=== PATIENT | female | born 1985 | race Caucasian/White ===

== ENCOUNTER 2017-02-24 10:14 | Inpatient (IN) ==
[2017-02-24] MEDS ORDERED: NOZIN NASAL SWAB NAS ONE ×2 (10:19)
[2017-02-24] MEDS ORDERED: FAMOTIDINE PB 20 MG/50 ML BAG IV ONE (10:19)
[2017-02-24] MEDS ORDERED: CITRIC ACID/SODIUM CITRATE 30ml PO ONE (10:19)
[2017-02-24] MEDS ORDERED: CEFAZOLIN PREMIX (MC ONLY) 2 GM/50 ML BAG IV ONE (10:19)
--- OUTSIDE RECORDS SUMMARY | 2017-02-24 10:20 | External Medical Summary | Continuity of Care Document ---
:1985 Author Organization [facility] [employer] [facility] Address [address] [place], [place] [id number] Phone Care Team Providers Name Role Phone Prachi Renee MD Unavailable Unavailable Allergies, Adverse Reactions, Alerts Substance Reaction Severity Status TRIAMCINOLONE ACETONIDE spread rash Unknown Active Medications Medication Instructions Dosage Effective Dates Status Comments (start - stop) ORAL - Active TABLET clobetasol 0.05 % apply by topical Not Available - Active topical cream route 2 times every day a thin layer to the affected area(s) as needed Claritin Liqui-Gel as needed - Active 10 mg capsule Problems Condition Effective Dates (start - stop) Clinical Status Encounter for suprvsn of normal - , second trimester 23 weeks gestation of - Oth related conditions, - second trimester Matern care for oth or susp poor fetl - gr, 2nd tri, unsp 18 weeks gestation of - Previous Low Transverse - Matern care for oth or susp poor fetl - grth, 2nd tri, unsp 19 weeks gestation of - Previous Low Transverse - Encntr screen for infections w sexl - mode of transmiss Encounter for screening for oth - infec/parastc diseases Encounter for suprvsn of normal - , first trimester Encounter for screening of - mother 10 weeks gestation of - Previous Low Transverse - Encounter for suprvsn of normal - , second trimester 19 weeks gestation of - Previous Low Transverse - Encounter for suprvsn of normal - , second trimester 14 weeks gestation of - Procedures Procedure Date OB Visit No Charge Results Test Name Date and Time Measure Units Reference Range Abnormal Flag Comments Unknown Advance Directives Directive Yes / No Effective Date File Name Unknown Encounters Encounter Practice Location Reason(s) Diagnoses Date Provider Care Team Description For Visit Members [facility] Encounter for Oct- Morales Referring In Womens suprvsn of normal 9-201 Charlene. Provider: Jasmeet MEDELLIN, , second 7 700 Prachi [address] [id number] weeks Medical [facility] 1522, gestation of [facility], [facility] , [address] [place], [address], , [facility] [place], , [place], tel: [phone] , [place]. tel: tel: [phone] [facility] Previous Low Aug-2 Morales Referring In Womens Transverse 4-201 Charlene. Provider: Jasmeet MEDELLIN C-SectionEncounte 7 700 Prachi PO Box r for suprvsn of [facility] 1522, normal , [facility], second , [place] [address], [id number] weeks 120, [address], , gestation of [facility] [place], , [place], tel: [phone] , [place]. tel: tel: [phone] [facility] Previous Low Aug-2 Morales Referring In Womens Ultrasound Transverse 4-201 Charlene. Provider: Jasmeet MEDELLIN C-SectionMatern 7 700 Prachi PO Box care for oth or Medical [facility] 1522, susp poor fetl [facility], [facility], 2nd tri, , [place] [address], unsp19 weeks 120, [address], [id number], gestation of [facility] [place], , [place], tel: [phone]. , [place]. tel: tel: [phone] [facility] Oth Aug-1 Morales Referring In Womens related 4-201 Charlene. Provider: Jasmeet MEDELLIN, conditions, 7 700 Prachi PO Box second Medical [facility], trimesterMatern [facility], care for oth or Sreedhar [address], susp poor fetl 120, [address], [id number], grth, 2nd tri, Tanvir Ag unsp18 weeks [place], , [place], tel: gestation of [phone] . , [place]. tel: tel: [phone] [facility] Previous Low Frederick-1 Morales Referring In Womens Transverse 7-201 Charlene. Provider: Jasmeet MEDELLIN, C-SectionEncounte 7 700 Prachi PO Box r for suprvsn of [facility] 1522, normal , [facility], [facility] Sreedhar [address], [id number] weeks 120, [address], , [facility] [place], , [place], tel: [phone]. , [place]. tel: tel: [phone] [facility] Previous Low Scotty-2 Morales Referring In Womens Transverse 0-201 Charlene. Provider: Jasmeet MEDELLIN, C-SectionEncntr 7 700 Prachi PO Box screen for [facility], infections w sexl [facility], mode of Sreedhar [address], transmissEncounte 120, [address], , r for screening Ag [facility] for oth [place], , [place], tel: infec/parastc [phone] . [facility] , [place]. tel: for suprvsn of tel: [phone] normal , [phone] first trimesterEncounte r for screening of [id number] weeks gestation of Associates [facility] Cortez0 Richard In Womens 8-201 Skye. [facility], 7 700 [facility] 1522, [address] [place], [facility] [place], 120, [id number], [facility], tel:[phone] , . tel: [phone] [facility] Fajardo-0 Richard In W[facility]ens 7-201 [facility], 7 700 PO [facility] 1522, [address] [place], [facility] [place], 120, [id number], [facility], tel:[phone] , [place]. tel: [phone] Family History Family Member Diagnosis Age At Onset No family history of Lung Disease No family history of Thyroid Disorder No family history of Epilepsy No family history of Breast Cancer No family history of Venous Thrombosis No family history of Hypertension No family history of Osteoporosis No family history of Ovarian Cancer No family history of Cardiovascular Disease No family history of Colon Cancer No family history of Pulmonary Embolism No family history of Stroke No family history of Kidney Disease No family history of Diabetes Immunizations Vaccine Date Status Comments Unknown Payers Payer name Insurance type Covered green party ID Authorization(s) [facility] [place] BL [id number] Social History Type Description Quantity Date Captured Alcohol Use Details No Caffeine Use Details Unknown Tobacco Use Status Unknown Smoking Status Never smoker Vital Signs Date / Height Weight BMI Pulse Blood Temperature Respiratory Body Head BMI Time: Rate Pressure Rate Surface Circumference percentile Area 174.60 40.5 115/73 -2017 lbs 8 mm[Hg] 8:42 kg/m AM eter (2) 39.6 -2017 5 8:33 kg/m AM eter (2) Chief Complaint And Reason For Visit Unknown Chief Complaint And Reason For Visit Reason For Referral Reason For Referral Unknown Plan Of Care Date Type Action Status Appointment Geovany Mack BOOKED Future Order: Radiology Order Complete OB Ultrasound > 14 Ordered Weeks ([id number]) Date Type Problem Goal Intervention Status Start Date Unknown. History Of Present Illness Encounter Date Complaint History Of Present Illness This patient has no known history of present illness Functional Status Encounter Date Functional Assessment Cognitive Assessment Unknown Medications Administered Medication Instructions Dosage Effective Dates (start - stop) Status Comments Drug Treatment Unknown Instructions Date Instruction Additional Information HIV and other routine tests risk factors identified by history anticipated course of care nutrition and weight gain counseling, special diet toxoplasmosis precautions (cats / raw meat) sexual activity exercise indications for ultrasound influenza vaccine environmental / work hazards travel use of any medications (including supplements, vitamins, herbs, OTC drugs) domestic violence seat belt use childbirth classes / hospital facilities hospital registration genetic testing new ob handbook Zika virus assessment & precautions
--- OUTSIDE RECORDS SUMMARY | 2017-02-24 10:21 | External Medical Summary | Continuity of Care Document ---
:1985 Author Organization [facility] [employer] [facility] Address [address] [place], [place] [address] Phone Care Team Providers Name Role Phone [...] Effective Dates (start - stop) Clinical Status Previous Low Transverse - Encounter for suprvsn of normal - , second trimester 27 weeks gestation of - Oth related conditions, - second trimester Matern care for oth or susp poor fetl - gr, 2nd tri, unsp 18 weeks gestation of - Previous Low Transverse - Matern care for oth or susp poor fetl - gr, 2nd tri, unsp 19 weeks gestation of [...] second trimester 14 weeks gestation of - Encounter for suprvsn of normal - , second trimester 23 weeks gestation of - Procedures Procedure Date Immuniz admnin, 1 vac, sngl/combo 19 Yrs + Flu Vaccine - Quadrivalent OB Visit No Charge Hemoglobin count, colorimetric Hematocrit blood count Glucose test Venpnctr fngr/heel/ear stick routne Results Test Name Date and Time Measure Units Reference Range Abnormal Flag Comments Panel Description: Glucose [Mass/volume] in Serum or Plasma --1 hour post 50 g glucose PO GLUCOSE, 114 mg/dL <140 N Test performed at [facility] 09:39:00 DIAGNOSTICS [id number] (50G)-[address] [place] [address]Lwmqwbne: NATHANIEL NICHOLS DO,MPH Panel Description: HEMOGLOBIN + HEMATOCRIT HEMOGLOBIN 09:39:00 11.8 g/dL 11.7-15.5 N HEMATOCRIT 09:39:00 33.8 % 35.0-45.0 L REPORT COMMENT:FASTING :NOTest performed at [facility] [id number] [place] [address]Ejmvrzwl: NATHANIEL NICHOLS DO,MPH Advance Directives Directive Yes / No Effective Date File Name Unknown Encounters Encounter Practice Location Reason(s) Diagnoses Date Provider Care Team Description For Visit Members Leslie Ag Previous Low Morales Referring In Womens Transverse 7-201 Charlene. Provider: Health PA, C-SectionEncounte 7 700 Prachi PO Box r for suprvsn of Medical [facility] 1522, normal , [place] [address], [place] [address] [place], [id number] weeks 120, [address], [id number], gestation of Tan[place], , [place], tel: [phone]. , [place]. tel: tel: [phone] [facility] Encounter for Sep-1 Morales Referring In Womens suprvsn of normal 9-201 Charlene. Provider: Jasmeet MEDELLIN, , second 7 700 Prachi PO Box [id number] weeks Medical [facility] 1522, gestation of [facility], Dr [address] [place], [address], [address], [id number], Michael Agr[place], , [place], tel: [phone]. , [place]. tel: tel: [phone] [facility] Previous Low Aug-2 Morales Referring In Womens Transverse 4-201 Charlene. Provider: Jasmeet MEDELLIN, C-SectionEncounte 7 700 Prachi PO Box r for suprvsn of Medical [facility] 1522, normal , [facility], second Dr [address] [address] [place], [id number] weeks 120, [address], , [facility] of [facility] [place], , [place], tel: [phone]. , [place]. tel: tel: [phone] [facility] Previous Low Aug-2 Morales Referring In Womens Ultrasound Transverse 4-201 Charlene. Provider: Jasmeet MEDELLIN, C-SectionMatern 7 700 [address]achi PO Box care for oth or Medical [facility] 1522, susp poor fetl [facility], [facility], 2nd tri, Dr [address] [place], unsp19 weeks 120, [address], [id number], gestation of Tanvir Ag [place], , [place], tel: [phone]. , [place]. tel: tel: [phone] [facility] Oth Aug-1 Morales Referring In Womens related 4-201 Charlene. Provider: Jasmeet MEDELLIN, conditions, 7 700 Prachi PO Box second Medical [facility] 1522, trimesterMatern [facility], care for oth or [place] [address] [place], susp poor fetl 120, [address], [id number], grth, 2nd tri, [facility] unsp18 weeks [place], , [place], tel: gestation of [phone]. , [place]. tel: tel: [phone] [facility] Previous Low Frederick-1 Morales Referring In Womens Transverse 7-201 Charlene. Provider: Jasmeet MEDELLIN, C-SectionEncounte 7 700 Prachi PO Box r for suprvsn of Medical [facility] 1522, normal , [facility], [facility] Sreedhar [address], weeks 120, [address], , gestation of [facility] [place], , [place], tel: [phone]. , [place]. tel: tel: [phone] [facility] Previous Low Scotty-2 Morales Referring In Womens Transverse 0-201 Charlene. Provider: Jasmeet MEDELLIN, C-SectionEncntr 7 700 Prachi PO Box screen for Medical [facility] 1522, infections w sexl [facility], mode of Sreedhar [address], transmissEncounte 120, [address], , r for screening [facility] for oth [place], , [place], tel: infec/parastc [phone]. [facility] , [place]. tel: for suprvsn of tel: [phone] normal , [phone] first trimesterEncounte r for screening of weeks gestation of [facility] Scotty-0 Ramos In Womens 8-201 Skye. Jasmeet MEDELLIN, 7 700 PO Box Medical 1522, [facility], [place], Sreedhar [address], 120, [id number], [place], [place], tel: [phone] , [place]. tel: [phone] Leslie Ag Ramos In Womens 7-201 [facility], 7 700 [facility] 1522, [place] [address] Anna, [facility], 120, [id number], [place], [place], [phone] , . tel: [phone] Family History Family Member Diagnosis Age At [...] of Diabetes Immunizations Vaccine Date Status Comments Influenza, injectable, completed Source: New Immunization Record quadrivalent, preservative free, 3 yrs or older Payers Payer name Insurance type Covered constitution party ID Authorization(s) [facility] [id number] [facility] [id number] Social History Type Description Quantity Date Captured Alcohol Use Details No Caffeine Use Details Unknown Tobacco Use Status Unknown Smoking Status Never smoker Vital Signs Date / Height Weight BMI Pulse Blood Temperature Respiratory Body Head BMI Time: Rate Pressure Rate Surface Circumference percentile Area 180.50 41.9 110/68 -2017 lbs 5 mm[Hg] 8:52 kg/m AM eter (2) Chief Complaint And Reason For Visit Unknown Chief Complaint And Reason For Visit Reason For Referral Reason For Referral Unknown Plan Of Care Date Type Action Status Appointment Geovany Mack BOOKED Appointment Geovany Mack [facility] [place] Future Order: Radiology Order Complete OB Ultrasound > 14 Ordered Weeks ([id number]) Date Type Problem Goal Intervention Status Start Date Unknown. History Of Present Illness Encounter Date Complaint History Of Present Illness This patient has no known history of present illness Functional Status Encounter Date Functional Assessment Cognitive Assessment Unknown Medications Administered Medication Instructions Dosage Effective Dates (start - stop) Status Comments Drug Treatment Unknown Instructions Date Instruction Additional Information gestational glucose lab screening HIV and other routine tests risk factors [...]
--- OUTSIDE RECORDS SUMMARY | 2017-02-24 10:21 | External Medical Summary | Continuity of Care Document ---
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 36 weeks gestation of - Previous Low Transverse - 32 weeks gestation of - Previous Low Transverse - Encounter for suprvsn of normal - , second trimester 14 weeks gestation of - Encounter for suprvsn of normal - , second trimester 23 weeks gestation of - Encounter for suprvsn of normal - , third trimester 30 weeks gestation of - Procedures Procedure Date OB Visit No Charge Results Test Name Date and Time Measure Units Reference Range Abnormal Flag Comments Unknown Advance Directives Directive Yes / No Effective Date File Name Unknown Encounters Encounter Practice Location Reason(s) Diagnoses Date Provider Care Team Description For Visit Members Leslie Ag Previous Low Morales Referring In Womens Transverse 9-201 Charlene. Provider: Jasmeet MEDELLIN C-SectionStreptoc 7 700 Prachi PO Box occus B carrier [address], complicating [place] [address] [place], [id number] weeks 120, [address] , , gestation of Ag [facility] [place], , [place], tel: [phone] , [place]. tel: tel: [phone] Leslie Ag Previous Low Morales Referring In Womens Transverse 5-201 Charlene. Provider: Jasmeet MEDELLIN [id number] weeks 7 700 Prachi PO Box gestation of [facility] 1522, [facility], [place] [address] [place], 120, [address], [id number], [facility], , [place], tel: [phone]. , [place]. tel: tel: [phone] Leslie Ag Previous Low Nov-2 Morales Referring In Womens Transverse 1-201 Charlene. Provider: Jasmeet MEDELLIN, [id number] weeks 7 700 Prachi PO Box gestation of [facility] 1522, Center [facility], [place] [address] [place], 120, [address], [id number], Ancelmo [facility] [place], , [place], tel: [phone]. , [place]. tel: tel: [phone] Leslie Ag Encounter for Nov-0 Morales Referring In Womens suprvsn of normal 7-201 Charlene. Provider: Jasmeet MEDELLIN, , third 7 700 Prachi PO Box [id number] weeks Medical [facility] 1522, gestation of [facility], [place] [address] [place], [address], [address], , [place]mo [place], , [place], tel: [phone] , [place]. tel: tel: [phone] Leslie Ag Previous Low Oct-1 Morales Referring In Womens Transverse 7-201 Charlene. Provider: Jasmeet MEDELLIN, C-SectionEncounte 7 700 [address] PO Box r for suprvsn of [facility] 1522, normal , [facility], second [place] [address] [place], weeks 120, [address], [id number], gestation of Ancelmo [facility] [place], , [place], tel: [phone] , [place]. tel: tel: [phone] Leslie Ag Encounter for Sep-1 Morales Referring In Womens suprvsn of normal 9-201 Charlene. Provider: Jasmeet MEDELLIN, , second 7 700 Prachi PO Box [id number] weeks [facility] 1522, gestation of [facility], [place] [address] [place], 120, [address], , Magy [place], , [place], tel: [phone]. , [place]. tel: tel: [phone] [facility] Previous Low Aug-2 Morales Referring In Womens Transverse 4-201 Charlene. Provider: Jasmeet MEDELLIN, C-SectionEncounte 7 700 Prachi PO Box r for suprvsn of [facility] 1522, normal , [facility], [facility] Dr [address] [address] [place], [id number] weeks 120, [address], [id number], gestation of Tanvir Ag [place], , [place], tel: [phone]. , [place]. tel: tel: [phone] [facility] Previous Low Sep-2 Morales Referring In Womens Ultrasound Transverse 4- Anvik. Provider: Jasmeet MEDELLIN, C-SectionMatern 7 700 Prachi PO Box care for oth or [facility] 1522, susp poor fetl [facility], [facility], 2nd tri, [place] [address] [place], unsp19 weeks 120, [address], , gestation of Magy AgRUST [place], , [place], tel: [phone]. , [place]. tel: tel: [phone] [facility] Oth Aug-1 Morales Referring In Womens related 4-201 Charlene. Provider: Jasmeet MEDELLIN, conditions, 7 700 Prachi PO Box [facility] 1522, trimesterMatern [facility], care for oth or Dr [address] [place], susp poor fetl 120, [address], , grth, 2nd tri, Tanvir Ag unsp18 weeks [place], , [place], tel: gestation of [phone]. , [place]. tel: tel: [phone] [facility] Previous Low Aug- Morales Referring In Womens Transverse 7-201 Charlene. Provider: Jasmeet MEDELLIN, C-SectionEncounte 7 700 [address] PO Box r for suprvsn of Medical [facility] 1522, normal , [facility], [facility] [place] [address] [place], weeks 120, [address], [id number], gestation of Ancelmo [facility] [place], , [place], tel: [phone]. , [place]. tel: tel: [phone] Associates [facility] Previous Low Scotty-2 Morales Referring In Womens Transverse 0-201 Charlene. Provider: Health LACIE, C-SectionEncntr 7 700 Prachi PO Box screen for Medical [facility] 1522, infections w sexl Center [facility]an [place], mode of [place] [address] [place], transmissEncounte 120, [address], , r for screening [facility] for oth [place], , [place], tel: infec/parastc [phone]. [facility] , [place]. tel: for suprvsn of tel: [phone] normal , [phone] first trimesterEncounte r for screening of [id number] weeks gestation of Associates Ancelmo Fajardo-0 Richard In Womens 8-201 Skye. Health LACIE, 7 700 PO Box Medical 1522, [place], [place], 120, [id number], [facility] [place], tel: [phone] , [place]. tel: [phone] Associates [facility] Fajardo-0 Richard In Womens 7-201 Skye. Health [place], 7 700 PO Box Medical 1522, [address], [place], 120, [id number], [facility] [place], tel: [phone] , [place]. tel: [phone] Family History Family Member Diagnosis Age At [...] of Diabetes Immunizations Vaccine Date Status Comments Tdap completed Source: New Immunization Record Influenza, injectable, completed Source: New Immunization Record quadrivalent, preservative free, 3 yrs or older Payers Payer name Insurance type Covered green party ID Authorization(s) [facility] [place] BL [id number] [facility] BL [id number] [facility] [id number] Social History Type Description Quantity Date Captured Alcohol Use Details No Caffeine Use Details Unknown Tobacco Use Status Unknown Smoking Status Never smoker Vital Signs Date / Height Weight BMI Pulse Blood Temperature Respiratory Body Head BMI Time: Rate Pressure Rate Surface Circumference percentile Area 190.00 44.1 lbs 6 mm[Hg] 8:56 kg/m AM eter (2) Chief Complaint And Reason For Visit Unknown Chief Complaint And Reason For Visit Reason For Referral Reason For Referral Unknown Plan Of Care Date Type Action Status Appointment Geovany Mack BOOKED Appointment Geovany Mack BOOKED Appointment Geovany Mack [facility] [place] C/S BOOKED Future Order: Radiology Order Complete OB Ultrasound > 14 Ordered Weeks ([id number]) Date Type Problem Goal Intervention Status Start Date Unknown. History Of Present Illness Encounter Date Complaint History Of Present Illness This patient has no known history of present illness Functional Status Encounter Date Functional Assessment Cognitive Assessment Unknown Medications Administered Medication Instructions Dosage Effective Dates (start - stop) Status Comments Drug Treatment Unknown Instructions Date Instruction Additional Information labor signs gestational glucose lab screening HIV and other [...]
--- OUTSIDE RECORDS SUMMARY | 2017-02-24 10:21 | External Medical Summary | Continuity of Care Document ---
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 Provider: Health PA, C-SectionEncounter 7 700 [address] PO Box for suprvsn of Medical Ullom 1522, normal , [facility], second [id number] , [place] [address] [place], weeks gestation of 120, [address], , [place], [place], , [place], tel: [phone]. , [place]. tel: tel: [phone] [facility] Previous Low Scotty-2 Morales Referring In Womens Transverse 0-201 Charlene. Provider: Health LACIE, C-SectionEncntr 7 [address] PO Box screen for Medical Ullom 1522, infections w sexl [facility], mode of [place] [address] [place], transmissEncounter [address], [address], , for screening for Ancelmo, [place] oth infec/parastc [place], , [place], tel: diseasesEncounter [phone] . for suprvsn of , [place]. tel: normal , tel: [phone] first [phone] trimesterEncounter for screening of weeks gestation of [facility] Fajardo-0 Richard In Womens 8-201 Skye. Health LACIE, 7 700 PO [address] Medical [address], [address] [place], [place], 120, [id number], [place], [place], tel: [phone] , [place]. tel: [phone] [facility] Fajardo-0 Richard In Womens 7-201 Skye. Health LACIE, 7 700 PO [address] Medical [address], [address] [place], [place], 120, [id number], [place], [place], tel: [phone] , [place]. tel: [phone] Family History Family Member Diagnosis Age At [...] Unknown Payers Payer name Insurance type Covered constitution party ID Authorization(s) ELVIS ADRIAN [id number] Social History Type Description Quantity Date Captured Alcohol Use Details No Caffeine Use Details Unknown Tobacco Use Status Unknown Smoking Status Never smoker Vital Signs Date / Height Weight BMI Pulse Blood Temperature Respiratory Body Head BMI Time: Rate Pressure Rate Surface Circumference percentile Area 164.20 38.1 110/62 2017 lbs 6 mm[Hg] 2:46 kg/m PM eter (2) Chief Complaint And Reason For Visit Unknown Chief Complaint And Reason For Visit Reason For Referral Reason For Referral Unknown Plan Of Care Date Type Action Status Appointment Geovany Mack BOOKED Date Type Problem Goal Intervention Status Start [...]
--- OUTSIDE RECORDS SUMMARY | 2017-02-24 10:21 | External Medical Summary | Continuity of Care Document ---
:1985 Author Organization [facility] Allergies Active Description Code Type Severity Reaction Onset Reported/ Identified Relationship Clinical to Patient Status Yes TRIAMCINOLON 2189 1 N/A spread E ACETONIDE rash Medications Medication Packaging Start Date Stop Date Route Dosage Sig Tablet 08/08/2016 08/10/2016 AMOXICILLIN take 1 tablet by ORAL route 3 times every day for 3 days Problems Date Dx Coded Attending Type Code Diagnosis Diagnosed By 10/10/2016 Charlene Morales O34.211 Previous Low Transverse 10/10/2016 Charlene Morales O36.5920 Matern care for oth or susp poor fetl grth, 2nd tri, unsp 10/10/2016 Charlene Morales Z3A.19 19 weeks gestation of 12/03/2016 Charlene Morales O34.211 Previous Low Transverse 12/03/2016 Charlene Morales Z34.82 Encounter for suprvsn of normal , second trimester 12/03/2016 Charlene Morales Z3A.27 27 weeks gestation of Procedures Code Description [place] [address] Ultrasnd exam 10/10/2016 of preg uterus, compl 76927 OB Visit No 12/03/2016 Charge 12710 Immuniz 12/03/2016 admnin, 1 vac, sngl/combo 87476 Flu Vaccine - 12/03/2016 Quadrivalent 93742 Immuniz 12/24/2016 admnin, 1 vac, sngl/combo 19854 TDAP VACCINE 12/24/2016 >7 IM Results There is no data. Encounters ACCT No. Visit Discharge Status Pt. Type Provider Facility Loc./Unit Complaint Date/Time [id number] 02/12/2017 02/12/2017 [facility] Outpatient Morales, 13:15:00 23:59:59 Charlene Woods [id number] 02/04/2017 02/04/2017 [facility] Outpatient Morales, 08:40:00 23:59:59 Charlene Woods [id number] 01/21/2017 01/21/2017 [facility] Outpatient Morales, 08:40:00 23:59:59 Charlene Woods [id number] 01/07/2017 01/07/2017 [facility] Outpatient Morales, 09:20:00 23:59:59 Charlene Woods [id number] 12/24/2016 12/24/2016 [facility] Outpatient Morales, 11:05:00 23:59:59 Charlene Woods [id number] 12/03/2016 12/03/2016 [facility] Outpatient Morales, 08:40:00 23:59:59 Charlene Woods [id number] 11/05/2016 11/05/2016 [facility] Outpatient Morales, 08:40:00 23:59:59 Charlene Woods [id number] 10/10/2016 10/10/2016 [facility] Outpatient Morales, 14:00:00 23:59:59 Charlene Woods [id number] 10/10/2016 10/10/2016 [facility] Outpatient Morales, 13:45:00 23:59:59 Charlene Woods [id number] 09/30/2016 09/30/2016 [facility] Outpatient Morales, 15:30:00 23:59:59 Charlene Woods [id number] 09/02/2016 09/02/2016 [facility] Outpatient Morales, 14:45:00 23:59:59 Charlene Woods [id number] 08/09/2016 08/09/2016 [facility] Outpatient Morales, 15:06:00 23:59:59 Charlene Woods [id number] 08/08/2016 08/08/2016 [facility] Outpatient Morales, 10:50:00 23:59:59 Charlene Woods [id number] 08/06/2016 08/06/2016 [facility] Outpatient Morales, 10:15:00 23:59:59 Charlene Woods [id number] 07/25/2016 07/25/2016 [facility] Outpatient Ramos, 09:55:00 23:59:59 Skye Duran [id number] 07/24/2016 07/24/2016 C[facility] Outpatient Ramos, 09:48:00 23:59:59 Skye Duran [id number] 02/19/2017 Document 13:50:00 Registration
--- OUTSIDE RECORDS SUMMARY | 2017-02-24 10:21 | External Medical Summary | Continuity of Care Document ---
:1985 Author Organization [facility] Address [address] [place], [place] [address] Phone Care Team Providers Name Role Phone [...] stop) Clinical Status Previous Low Transverse - Matern care for oth or susp poor fetl - , 2nd tri, unsp 19 weeks gestation of - Oth related conditions, [...] weeks gestation of - Procedures Procedure Date Ultrasound exam of preg uterus, complete Results Test Name Date and Time Measure Units Reference Range Abnormal Flag Comments Unknown Advance Directives Directive Yes / No Effective Date File Name Unknown Encounters Encounter Practice Location Reason(s) Diagnoses Date Provider Care Team Description For Visit Members [facility] Previous Low Morales Referring In Womens Transverse 4-201 Charlene. Provider: Jasmeet MEDELLIN, C-SectionEncounte 7 [address] PO Box r for suprvsn of [facility] 1522, normal , [facility] Dr [place] [address] [place], [id number] weeks 120, [address], , gestation of [place], , [place], tel: [phone]. , [place]. tel: tel: [phone] [facility] Previous Low Morales Referring In Womens Ultrasound Transverse -201 Charlene. Provider: Jasmeet MEDELLIN, C-SectionMatern 7 [address] PO Box care for oth or [facility] 1522, susp poor fetl [facility], [facility], tri, Dr [place] [address] [place], unsp19 weeks 120, [address], , gestation of [place], , [place], tel: [phone] , [place]. tel: tel: [phone] Associates Ag Oth Sep- Morales Referring In Womens related 4-201 Charlene. Provider: wayne Peralta, 7 [address] PO Box [facility] 1522, trimesterMatern [facility], care for oth or Dr [place] [address] [place], susp poor fetl 120, [address], , gr, tri, [place] unsp18 weeks [place], , [place], tel:[phone] gestation of [phone]. , [place]. tel: tel: [phone] [facility] Previous Low Rfederick-1 Morales Referring In Womens Transverse 7-201 Charlene. Provider: Health LACIE, C-SectionEncounte 7 [address] PO Box r for suprvsn of Medical Ullo 1522, normal , [facility], [facility] , [place] [address] [place], [id number] weeks 120, [address], [id number], [facility] [place], , [place], tel: [phone]. , [place]. tel: tel: [phone] [facility] Previous Low Scotty-2 Morales Referring In Womens Transverse 0-201 Charlene. Provider: Health LACIE, C-SectionEncntr 7 [address] PO Box screen for Medical Ullo 1522, infections w sexl [facility], mode of [place] [address] [place], transmissEncounte 120, [address], , r [facility] [place], , [place], tel: infec/parastc [phone]. [facility] Hospital[facility] , [place]. tel: for suprvsn of tel: [phone] normal , [phone] first trimesterEncounte r for screening of fefeec82 weeks gestation of [facility] Cortez0 Richard In Womens 8-201 Skye. Health LACIE, 7 700 [address] Medical [address], [address] [place], [place], 120, [id number], [place], [place], tel: [phone] , [place]. tel: [phone] [facility] Cortez0 Richard In Womens 7-201 Skye. Health PA, 7 700 PO Box Medical [address], [address] [place], [place], 120, [id number], [place], [place], tel: [phone] , [place]. tel: [phone] Family History Family Member Diagnosis Age At [...] Unknown Payers Payer name Insurance type Covered republican ID Authorization(s) [facility] [id number] Social History Type Description Quantity Date Captured Unknown Vital Signs Date / Height Weight BMI Pulse Blood Temperature Respiratory Body Head BMI Time: Rate Pressure Rate Surface Circumference percentile Area Unknown Chief Complaint And Reason For Visit Unknown Chief Complaint And Reason For Visit Reason For Referral Reason For Referral Unknown Plan Of Care Date Type Action Status Appointment Geovany Mack BOOKED Future Order: Radiology Order Complete OB Ultrasound > 14 Ordered Weeks (30301) Date Type Problem Goal Intervention Status Start [...]
--- OUTSIDE RECORDS SUMMARY | 2017-02-24 10:21 | External Medical Summary | Continuity of Care Document ---
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 Provider: Jasmeet MEDELLIN, C-SectionEncounte 7 [address] PO Box r for suprvsn of [facility] 1522, normal , [facility] Dr [place] [address] [place], [id number] weeks 120, [address], , gestation of [place], , [place], tel: [phone]. , [place]. tel: tel: [phone] [facility] Previous Low Morales Referring In Womens Ultrasound Transverse - Charlene. Provider: Jasmeet MEDELLIN, C-SectionMatern 7 [address] PO Box care for oth or [facility] 1522, susp poor fetl [facility], [facility], tri, Dr [place] [address] [place], unsp19 weeks 120, [address], , gestation of [place], , [place], tel: [phone] , [place]. tel: tel: [phone] Associates Ag Oth Sep- Morales Referring In Womens related 4-201 Charlene. Provider: wayne Peralta, 7 700 [address] PO Box [facility] 1522, trimesterMatern [facility], care for oth or Dr [place] [address] [place], susp poor fetl 120, [address], , gr, 2nd tri, [place] unsp18 weeks [place], , [place], tel:[phone] gestation of [phone]. , [place]. tel: tel: [phone] [facility] Previous Low Frederick-1 Morales Referring In Womens Transverse 7-201 Charlene. Provider: Health LACIE, C-SectionEncounte 7 [address] PO Box r for suprvsn of Medical Ullo 1522, normal , [facility], [facility] , [place] [address] [place], [id number] weeks 120, [address], [id number], [facility] [place], , [place], tel: [phone]. , [place]. tel: tel: [phone] [facility] Previous Low Scotty-2 Morales Referring In Womens Transverse 0-201 Charlene. Provider: Health LACIE, C-SectionEncntr 7 [address] PO Box screen for Medical Ullo 1522, infections w sexl [facility], mode of [place] [address] [place], transmissEncounte 120, [address], , r [facility] [place], , [place], tel: infec/parastc [phone]. diseases[facility] , [place]. tel: for suprvsn of tel: [phone] normal , [phone] first trimesterEncounte r for screening of [id number] weeks gestation of [facility] Cortez0 Richard In Womens 8-201 Skye. Health LACIE, 7 700 PO [address] Medical [address], [address], [place], 120, [id number], [place], [place], tel: [phone] , [place]. tel: [phone] [facility] Cortez0 Richard In Womens 7-201 Skye. Health PA, 7 700 PO [address] Medical [address], [address], [place], 120, [id number], [place], [place], tel: [phone] , [place]. tel: [phone] Family History Family Member Diagnosis Age At [...] Unknown Payers Payer name Insurance type Covered democrat ID Authorization(s) [facility] [id number] Social History Type Description Quantity Date Captured Alcohol Use Details No Caffeine Use Details Unknown Tobacco Use Status Unknown Smoking Status Never smoker Vital Signs Date / Height Weight BMI Pulse Blood Temperature Respiratory Body Head BMI Time: Rate Pressure Rate Surface Circumference percentile Area 170.60 39.6 102/2017 lbs 5 mm[Hg] 2:28 kg/m PM eter (2) Chief Complaint And Reason For Visit Unknown Chief Complaint And Reason For Visit Reason For Referral Reason For Referral Unknown Plan Of Care Date Type Action Status Appointment Geovany Mack BOOKED Future Order: Radiology Order Complete OB Ultrasound > 14 Ordered Weeks (00552) Date Type Problem Goal Intervention Status Start [...]
--- OUTSIDE RECORDS SUMMARY | 2017-02-24 10:21 | External Medical Summary | Continuity of Care Document ---
:1985 Author Organization [facility] [facility] [facility] Address [address] [place], [place] [phone] Phone Care Team Providers Name Role Phone [...] Effective Dates (start - stop) Clinical Status Oth related conditions, - second trimester Matern care for oth or susp poor fetl - , 2nd tri, unsp 18 weeks gestation of [...] Prachi PO Box r for suprvsn of [facility] 1522, normal , [facility] [place] [address] [place], [id number] weeks 120, [address], , gestation of [place], , [place], tel: [phone]. , [place]. tel: tel: [phone] [facility] Previous Low Morales Referring In Womens Ultrasound Transverse - Charlene. Provider: Jasmeet MEDELLIN, C-SectionMatern 7 [address] PO Box care for oth or Medical [facility] 1522, susp poor fetl [facility], [facility], tri, [place] [address] [place], unsp19 weeks 120, [address], , gestation of [place], , [place], tel: [phone] , [place]. tel: tel: [phone] Associates Ag Oth Morales Referring In Womens related 4-201 Charlene. Provider: Jasmeet MEDELLIN, conditions, 7 [address] PO Box second [facility] 1522, trimesterMatern [facility], care for oth or [place] [address] [place], susp poor fetl 120, [address], , gr, 2nd tri, [place] unsp18 weeks [place], , [place], tel:[phone] gestation of [phone]. , [place]. tel: tel: [phone] [facility] Previous Low Frederick-1 Morales Referring In Womens Transverse 7-201 Charlene. Provider: Health LACIE, C-SectionEncounte 7 [address] PO Box r for suprvsn of Medical Ullo 1522, normal , [facility], [facility] [place] [address] [place], [id number] weeks 120, [address], , gestation of Michael [place], , [place], tel: [phone]. , [place]. tel: tel: [phone] [facility] Previous Low Scotty-2 Morales Referring In Womens Transverse 0-201 Charlene. Provider: Jasmeet MEDELLIN, C-SectionEncntr 7 [address] PO Box screen for [facility], infections w sexl [facility], mode of [place] [address] [place], transmissEncounte 120, [address], , r for [facility] [place], , [place], tel: infec/parastc [phone] . diseasesBerger Hospitaler , [place]. tel: for suprvsn of tel: [phone] normal , [phone] first trimesterEncounte r for screening of evqyxk70 weeks gestation of [facility] Cortez0 Richard In Womens 8-201 Skye. Health LACIE, 7 700 PO [address] Medical [address], [address] [place], [place], 120, [id number], [place], [place], tel: [phone] , [place]. tel: [phone] [facility] Cortez0 Richard In Womens 7-201 Skye. Health LACIE, 7 700 [address] Medical [address], [address] [place], [place], 120, [id number], [place], [place], tel:[phone] , [place]. tel: [phone] Family History Family Member Diagnosis Age At [...] name Insurance type Covered democrat ID Authorization(s) [facility] [id number] Social History Type Description Quantity Date Captured Alcohol Use Details No Caffeine Use Details Unknown Tobacco Use Status Unknown Smoking Status Never smoker Vital Signs Date / Height Weight BMI Pulse Blood Temperature Respiratory Body Head BMI Time: Rate Pressure Rate Surface Circumference percentile Area 168.70 39.2 108/64 lbs 0 mm[Hg] 3:33 kg/m PM eter (2) Chief Complaint And Reason For Visit Unknown Chief Complaint And Reason For Visit Reason For Referral Reason For Referral Unknown Plan Of Care Date Type Action Status Appointment Geovany Mack BOOKED Future Order: Radiology Order Complete OB Ultrasound > 14 Ordered Weeks ([id number]) Date Type Problem Goal Intervention Status Start [...]
--- OUTSIDE RECORDS SUMMARY | 2017-02-24 10:21 | External Medical Summary | Continuity of Care Document ---
:1985 Author Organization [facility] Address [address] [place], [place] [id number] Phone Care Team Providers Name Role Phone [...] third trimester 30 weeks gestation of - Oth related conditions, [...] admnin, 1 vac, sngl/combo 19 Yrs + TDAP VACCINE >7 IM OB Visit No Charge Results Test Name Date and Time Measure Units Reference Range Abnormal Flag Comments Unknown Advance Directives Directive Yes / No Effective Date File Name Unknown Encounters Encounter Practice Location Reason(s) Diagnoses Date Provider Care Team Description For Visit Members Leslie Ag Previous [facility] Dec-2 Morales Referring In Womens Transverse 1-201 Charlene. Provider: Jasmeet MEDELLIN, [id number] weeks 7 [address] gestation of [place] [id number], [facility] [address] [place], [address], [id number], Ancelmo [facility], , [place], tel:[phone] , [place]. tel: tel: [phone] Leslie Ag Encounter for Nov-0 Morales Referring In Womens suprvsn of normal 7-201 Charlene. Provider: Jasmeet MEDELLIN, , third 7 700 [address] [id number] weeks Medical [facility] 1522, [facility] of [facility], Sreedhar [address] [place], [address], [id number], Ancelmo [facility], , [place], tel:[phone]. [phone] , [place]. tel: tel: [phone] Leslie Ag Previous Low Oct-1 Morales Referring In Womens Transverse 7-201 Charlene. Provider: Health LACIE, C-SectionEncounte 7 [address] Box r for suprvsn of [facility] 1522, normal , [facility], second , [address] [place], [id number] weeks 120, [address], [id number], [facility] of [facility] [place], , [place], tel: [phone]. [phone] , [place]. tel: tel: [phone] [facility] Encounter for Sep-1 Morales Referring In Womens suprvsn of normal 9-201 Charlene. Provider: Jasmeet MEDELLIN, , second 7 700 [address] [id number] weeks Medical [facility] 1522, gestation of [facility], Dr [address] [place], [address], [address], , [facility] [place], , [place], tel: [phone]. [phone] , [place]. tel: tel: [phone] [facility] Previous Low Aug-2 Morales Referring In Womens Transverse 4-201 Charlene. Provider: Jasmeet MEDELLIN, C-SectionEncounte 7 700 [address] PO Box r for suprvsn of [facility] 1522, normal , [facility], second Dr [address] [place], [id number] weeks 120, [address], , gestation of [place] [facility] [place], , [place], tel: [phone]. [phone] , [place]. tel: tel: [phone] [facility] Previous Low Aug-2 Morales Referring In Womens Ultrasound Transverse 4-201 Charlene. Provider: Health LACIE, C-SectionMatern 7 [address] PO Box care for oth or Medical [facility] 1522, susp poor fetl [facility], [facility], 2nd tri, , [address] [place], [id number] weeks 120, [address], [id number], [facility] [place], , [place], tel: [phone]. , [place]. tel: tel: [phone] Associates Ag Oth Aug- Morales Referring In Womens related 4-201 Charlene. Provider: Jasmeet MEDELLIN, conditions, 7 700 [address] PO Box second Medical [place] 1522, trimesterMatern [facility], care for oth or Sreedhar [address] [place], susp poor fetl 120, [address], [id number], grth, 2nd tri, Tanvir Ag unsp18 weeks [place], , [place], tel: gestation of [phone] . , [place]. tel: tel: [phone] [facility] Previous Low Aug- Morales Referring In Womens Transverse 7-201 Charlene. Provider: Jasmeet MEDELLIN, C-SectionEncounte 7 700 [address] PO Box r for suprvsn of [facility] 1522, normal , [facility], [facility] Sreedhar [address] [place], [id number] weeks 120, [address], , [facility] of [facility] [place], , [place], tel: [phone]. , [place]. tel: tel: [phone] [facility] Previous Low Scotty-2 Morales Referring In Womens Transverse 0-201 Charlene. Provider: Jasmeet MEDELLIN, C-SectionEncntr 7 [address] PO Box screen for Medical [facility] 15[facility], infections w sexl [facility], mode of Sreedhar [address] [place], transmissEncounte [address], [address], , r for screening Ag [facility] for oth [place], , [place], tel: infec/parastc [phone] . [facility] , [place]. tel: for suprvsn of tel: [phone] normal , [phone] first trimesterEncounte r for screening of [id number] weeks gestation of Associates [facility] Cortez0 Richard In Womens 8-201 Skye. [facility], 7 700 [facility] 1522, [address] Anna, [facility] [place], 120, [id number], [facility], tel:[phone] , . tel: [phone] [facility] Fajardo-0 Richard In Womens 7-201 Skye. [facility], 7 700 PO [facility] [address], [address], [facility] [place], 120, [id number], [facility], tel:[phone] , [place]. tel: [phone] Family History Family Member Diagnosis Age At [...] older Payers Payer name Insurance type Covered democrat ID Authorization(s) [facility] [id number] [facility] [id number] [facility] [id number] Social History Type Description Quantity Date Captured Alcohol Use Details No Caffeine Use Details Unknown Tobacco Use Status Unknown Smoking Status Never smoker Vital Signs Date / Height Weight BMI Pulse Blood Temperature Respiratory Body Head BMI Time: Rate Pressure Rate Surface Circumference percentile Area 185.60 43.1 lbs 3 mm[Hg] 11:08 kg/m AM eter (2) Chief Complaint And Reason For Visit Unknown Chief Complaint And Reason For Visit Reason For Referral Reason For Referral Unknown Plan Of Care Date Type Action Status Appointment Geovany Mack BOOKED Appointment Geovany Mack BOOKED Appointment Geovany Mack [facility] R C/S BOOKED Future Order: Radiology Order Complete OB Ultrasound > 14 Ordered Weeks ([id number]) Date Type Problem Goal Intervention Status Start [...]
--- OUTSIDE RECORDS SUMMARY | 2017-02-24 10:21 | External Medical Summary | Continuity of Care Document ---
:1985 Author Organization [facility] Address [address] [place], [place] [phone] Phone Care Team Providers Name Role Phone [...] stop) Clinical Status Previous Low Transverse - 32 weeks gestation of - Oth related conditions, [...] gestation of - Previous Low Transverse - 34 weeks gestation of - Previous Low Transverse [...] For Visit Members Leslie Ag Previous Low Dec-0 Morales Referring In Womens Transverse 5-201 Charlene. Provider: Jasmeet MEDELLIN, [id number] weeks 7 [address] Box gestation of [place] [address], [address], [address] [place], [address], [address], [id number], Ancelmo [facility], , [place], tel:+ [phone]. [phone] , [place]. tel: tel: [phone] Leslie Ag Previous Low Nov-2 Morales Referring In Womens Transverse 1-201 Charlene. Provider: Jasmeet MEDELLIN, [id number] weeks 7 [address] Box gestation of Medical [facility] 1522, [address], [address] [place], [address], [address], [id number], [facility], , [place], tel:[phone] , [place]. tel: tel: [phone] Leslie Ag Encounter for Nov-0 Morales Referring In Womens suprvsn of normal 7-201 Charlene. Provider: Health LACIE, , third 7 [address] [id number] weeks Medical [facility] 1522, gestation of [facility], Sreedhar [address] [place], [address], [address], [id number], [facility] [place], , [place], tel: [phone]. , [place]. tel: tel: [phone] [facility] Previous Low Oct-1 Morales Referring In Womens Transverse 7-201 Charlene. Provider: Health LACIE, C-SectionEncounte 7 [address] PO Box r for suprvsn of [facility] 1522, normal , [facility], second [address]reedhar [address] [place], [id number] weeks 120, [address], , gestation of [facility] [place], , [place], tel: [phone]. , [place]. tel: tel: [phone] Leslie Ag Encounter for Sep-1 Morales Referring In Womens suprvsn of normal 9-201 Charlene. Provider: Jasmeet MEDELLIN, , second 7 700 [address] Box [id number] weeks Medical [facility] 1522, gestation of [facility], Sreedhar [address] [place], [address], [address], [id number], [facility] [place], , [place], tel: [phone] . , [place]. tel: tel: [phone] Leslie Ag Previous Low Aug-2 Morales Referring In Womens Transverse 4-201 Charlene. Provider: Health LACIE, C-SectionEncounte 7 700 [address] PO Box r for suprvsn of [facility] 1522, normal , [facility], [address] [place], [id number] weeks 120, [address], [id number], gestation of [facility] [place], , [place], tel: [phone] . , [place]. tel: tel: [phone] [facility] Previous Low Aug-2 Morales Referring In Womens Ultrasound Transverse 4-201 Charlene. Provider: Jasmeet MEDELLIN, C-SectionMatern 7 700 [address] PO Box care for oth or Medical [place] 1522, susp poor fetl [facility], [facility], 2nd tri, Sreedhar [address] [place], [id number] weeks 120, [address], [id number], gestation of Michael [place], , [place], tel: [phone]. [phone] , [place]. tel: tel: [phone] [facility] Oth Aug-1 Morales Referring In Womens related 4-201 Charlene. Provider: Jasmeet MEDELLIN, conditions, 7 700 [address] PO Box second Medical [facility], trimesterMatern [facility], care for oth or Sreedhar [address] [place], susp poor fetl 120, [address], [id number], grth, 2nd tri, Tanvir Ag [place] unsp18 weeks [place], , [place], tel: gestation of [phone]. [phone] , [place]. tel: tel: [phone] [facility] Previous Low Frederick-1 Morales Referring In Womens Transverse 7-201 Charlene. Provider: Jasmeet MEDELLIN, C-SectionEncounte 7 [address] Box r for suprvsn of Medical [facility] 1522, normal , [facility], second Dr [address] [place], [id number] weeks 120, [address], [id number], gestation of Michael [place], , [place], tel: [phone]. [phone] , [place]. tel: tel: [phone] [facility] Previous Low Scotty-2 Morales Referring In Womens Transverse 0-201 Charlene. Provider: Jasmeet MEDELLIN, C-SectionEncntr 7 [address] PO Box screen for [facility], infections w sexl [facility], mode of Dr, [address] [place], transmissEncounte 120, [address], , r for screening [place] for [place]th [place], , [place], tel: infec/parastc [phone] . [id number] [facility]. tel: for suprvsn of tel: [phone] normal , [phone] first trimesterEncounte r for screening of [id number] weeks gestation of Associates [facility] Fajardo-0 Richard In Womens 8-201 [facility]. [facility] [place], 7 700 PO Box Medical 1522, [address], [facility] [place], 120, , [facility] [place], tel: [phone] , . tel: [phone] [facility] Scotty-0 Richard In Womens 7-201 [facility]. [facility], 7 700 PO Box Medical 1522, [address], [facility] [place], 120, , [facility] [place], tel: [phone] , . tel: [phone] Family History Family Member Diagnosis Age At [...] older Payers Payer name Insurance type Covered libertarian ID Authorization(s) TERESA SCHILLING [id number] [facility] SHAKIR [id number] [facility] [id number] Social History Type Description Quantity Date Captured Alcohol Use Details No Caffeine Use Details Unknown Tobacco Use Status Unknown Smoking Status Never smoker Vital Signs Date / Height Weight BMI Pulse Blood Temperature Respiratory Body Head BMI Time: Rate Pressure Rate Surface Circumference percentile Area 187.90 43.6 109/66 2017 lbs 7 mm[Hg] 9:47 kg/m AM eter (2) 43.1 2017 3 9:42 kg/m AM eter (2) Chief Complaint And Reason For Visit Unknown Chief Complaint And Reason For Visit Reason For Referral Reason For Referral Unknown Plan Of Care Date Type Action Status Appointment Geovany Mack BOOKED Appointment Geovany Mack BOOKED Appointment Geovany Mack BOOKED Appointment Geovany Mack [facility] [place] [facility] R C/S BOOKED Future Order: Radiology Order Complete OB Ultrasound > 14 Ordered Weeks ([id number]) Date Type Problem Goal Intervention Status Start [...]
[2017-02-24 10:52] VITALS: BMI 30.7
--- NOTE | 2017-02-24 10:54 | Anesthesia Preoperative Report ---
Anesthesia Epidural/Spinal Rec - Date and Time Date: 02/24/17 Preoperative Diagnosis: repeat c section Procedure: Plan: Spinal - Vital Signs Vital Signs: Temperature 97.9 F 02/24/17 10:47 Pulse Rate 87 02/24/17 10:47 Respiratory Rate 20 02/24/17 10:47 Blood Pressure 110/68 02/24/17 10:47 Pulse Oximetry 98 02/24/17 10:47 /Para: P:2 - Medictaions & Allergies Inpatient Medications: Current Medications Isopropyl Alcohol (Nozin Nasal Swab) 1 each REZA 0600,1400,2200 RUFINA Allergies/Adverse Reactions: Allergies Allergy/AdvReac Type Severity Reaction Status Date / Time triamcinolone Allergy Rash Verified 02/20/17 09:11 - Home Medications Home Medications: Home Medications Medication Instructions Recorded Confirmed Type Vit 108/Iron/Folic AC 1 each PO DAILY 02/20/17 02/20/17 History [ One Tablet] - Medical History Other History: Reports: Now DENIES: Anesthesia Reactions - Surgical History Reproductive Surgery/Treatment: Reports: Section Anesthesia Reactions: None Hx Family Anesthesia Reaction: No History of Motion Sickness: No - Social History Smoking Status: Never smoker Second Hand Exposure: No Substance Use Type: does not use Alcohol Intake Frequency: does not drink Hx Chewing Tobacco Use: No - Pertinent Findings Lab Data: CBC and BMP 02/24/17 10:41 EKG Rhythm: Normal Sinus Rhythm - Physical Exam Respiratory Exam: lungs clear Cardiovascular Exam: regular rate and rhythm - Airway Assessment Mallampati Score: II TMD: 3 Fingerbreadths Neck Extension: good Overall Assessment: may be difficult intubation - ASA ASA Score: 2 - Discussion Discussion: Discussed risks/options/alternatives of anesthesia and questions answered. Patient consents. Nursing pain assessment noted. Anesthesia Discussion: family member Attestation Statement: Prior to the delivery of any anesthetic medication, I examined the patient, developed the plan, obtained the patient's consent and discussed the risk and benefits of the procedure with the patient/guardian.
[2017-02-24] MEDS: LR 1,000 ML IV SCH ×2 (11:02→12:10)
[2017-02-24] MEDS ORDERED: SALINE FLUSH 10ml SYRINGE ONE (11:26)
[2017-02-24] MEDS ORDERED: PHENYLEPHRINE INJ 10 MG/ML VIAL IV ONE (11:26)
[2017-02-24] MEDS ORDERED: FentaNYL 100 MCG/2 ML INJECTION ONE (11:28)
[2017-02-24] MEDS ORDERED: MORPHINE SULFATE PF 5mg/10ml INJ (Duramorph) ONE (11:28)
[2017-02-24] MEDS ORDERED: OXYTOCIN BOLUS BAG 30 UNIT/500 ML ML IV SCH (12:15)
[2017-02-24] MEDS ORDERED: ONDANSETRON 4 MG/2 ML INJECTION IVP PRN (12:20)
[2017-02-24] MEDS ORDERED: NALOXONE 2 MG/2 ML INJECTION PFS IVP PRN (12:20)
[2017-02-24] MEDS ORDERED: NALBUPHINE 10 MG/ML INJECTION IVP PRN (12:20)
[2017-02-24] MEDS ORDERED: DiphenhydrAMINE 25 MG CAPSULE PO PRN (12:47)
[2017-02-24] MEDS ORDERED: SIMETHICONE 80 MG CHEWABLE TABLET PO PRN (12:47)
[2017-02-24] MEDS ORDERED: CALCIUM CARBONATE Chewable 500mg TABLET PO PRN (12:47)
[2017-02-24] MEDS ORDERED: HYDROCORTISONE 2.5% CREAM 30gm RECTALLY PRN (12:47)
[2017-02-24] MEDS ORDERED: ACETAMINOPHEN 500 MG TABLET PO PRN (12:47)
--- NOTE | 2017-02-24 12:55 | Operative Note ---
Operative Note - Date of Operation Date of Operation: 02/24/17 - General : 4 Para: 2 Estimated or Known Gestational Age (weeks): 39 Estimated or Known Gestational Age (days): 0 - Preoperative Diagnosis Previous Section - Postoperative Diagnosis same as preoperative - Procedure Repeat, Low-transverse - Surgeon Surgeon: Charlene Morales MD - Legislative Aide OB Legislative Aide: Amanuel Baptiste MD - Anesthesia Anesthesia Provider: Davion Bai CRNA Anesthesia Type: Spinal - Complications Complications: None - Estimated Blood Loss Estimated Blood Loss:: 700 - Findings Findings: viable female, clear fluids, normal uterus, normal adenexa, cephalic, OT - APGARS : 9,9 - Weight [place] Weight (grams): 3900 - Name Name: Colby - Description of Procedure Description of Procedure: The patient was taken to the operating room where anesthesia was obtained . She was placed in the dorsal supine position with a leftward tilt. A Jenkins catheter was placed . She was prepared and draped in the normal sterile fashion. Her previous Pfannenstiel incision was excised and then carried down to the fascia. The fascia was incised in the midline with the scalpel and then extended laterally with the Ponce scissors. The fascia was elevated, and the underlying rectus muscles were dissected off. The peritoneum was entered during this dissection. This was extended superiorly and inferiorly with good visualization of the bladder. The bladder blade was inserted. A bladder flap was created sharply. The lower uterine segment was incised in a transverse fashion [id number] with the scalpel and bluntly extended. The membranes were ruptured with abundant fluid. A segment of umbilical cord came through the incision. The infants head was delivered atraumatically. The nose and mouth were suctioned. The cord was clamped and cut. The infant was handed to the waiting resuscitation team. The placenta delivered spontaneously. The uterus was exteriorized and cleared of all clots and debris. The uterus was closed with running, locked 0-monocryl. Hemostasis was obtained on the serosal edges with cautery. The uterus was returned to the abdomen. The gutters were cleared of all clots and debris. The uterine incision was inspected one final time and still noted to be hemostatic. The peritoneum was closed with running 2-0 vicryl. Hemostasis was obtained in the rectus muscles with the cautery. The fascia was closed with running 0-vicryl. Hemostasis was obtained in the subcutaneous tissue with the cautery. The skin was closed with 4-0 vicryl in a subcuticular manner. A figure -of-eight of 0-monocyrl was placed on the left edge of the incision to prevent the skin edges from inverting. Steri-strips were placed. Sponge, sharp, and instrument counts were correct. The patient tolerated the procedure well and was taken to the recovery room in good condition.
[2017-02-24] MEDS ORDERED: OXYTOCIN DRIP 30 UNIT/500 ML ML IV SCH (13:00)
[2017-02-24] MEDS ORDERED: D5LR 1,000 ML IV SCH (13:00)
[2017-02-24] MEDS: IBUPROFEN 800 MG TABLET PO PRN (15:17)
[2017-02-24] MEDS: HYDROCODONE/APAP 5mg/325mg TABLET PO PRN ×2 (15:17→19:44)
[2017-02-24] MEDS: NOZIN NASAL SWAB NAS SCH ×2 (17:16→22:28)
[2017-02-24] MEDS: SIMETHICONE 80 MG CHEWABLE TABLET PO SCH ×3 (17:16→22:28)
--- NOTE | 2017-02-24 17:34 | Anesthesia Postoperative Note ---
- Date and Time Date: 02/24/17 Time: 17:34 - Status Patient Participated in Evaluation: Patient Participated in Person Vital Signs: Temperature 97.9 F 02/24/17 10:47 Pulse Rate 87 02/24/17 10:47 Respiratory Rate 20 02/24/17 10:47 Blood Pressure 110/68 02/24/17 10:47 Pulse Oximetry 98 02/24/17 10:47 Respiratory Function: Airway Patent Cardiovascular Function: Regular Pulse EKG: Sinus Rhythm Mental Status: Alert and Oriented Pain Intensity: 0 Hydration: Taking PO Fluids Complications During Recover: None Apparent - Follow-Up Instructions Instructions: Per Surgeon
[2017-02-25] MEDS: IBUPROFEN 800 MG TABLET PO PRN ×3 (00:56→17:26)
[2017-02-25] MEDS: HYDROCODONE/APAP 5mg/325mg TABLET PO PRN ×5 (00:56→22:04)
[2017-02-25] MEDS: DOCUSATE CALCIUM 240 MG CAPSULE PO SCH (08:07)
--- NOTE | 2017-02-25 08:10 | OB/GYN Progress Note ---
OB-PP Progress Note - General PPD1 Maternal Group B Strep: Positive Maternal blood type: A+ Maternal Rubella Status: Immune - Subjective Date: 02/25/17 Lochia: Minimal Pain: controlled Voiding: voiding - Objective Vital Signs: Last Vital Signs Temp 97.8 F 02/25/17 05:00 Pulse 69 02/25/17 05:00 Resp 16 02/25/17 05:00 BP 103/65 02/25/17 05:00 Pulse Ox 97 02/25/17 05:00 General: alert and oriented Abdomen: fundus firm, non-tender, soft, non-distended Incision: clean, no erythema, dry, intact Extremities: non-tender Laboratory: Laboratory Results - last 24 hr 02/24/17 02/24/17 02/24/17 10:41 10:41 17:47 WBC 8.2 16.2 H D RBC 4.34 4.53 Hgb 13.2 13.8 Hct 38.1 39.5 MCV 87.8 87.2 MCH 30.4 30.5 MCHC 34.6 34.9 RDW Std Deviation 46.1 45.2 Plt Count 181 204 MPV 10.5 10.6 Immature Gran % (Auto) 0.5 Neut % (Auto) 74.2 H Lymph % (Auto) 15.9 L Rankin % (Auto) 7.4 Eos % (Auto) 1.8 Baso % (Auto) 0.2 Neut # (Auto) 6.1 Lymph # (Auto) 1.3 Rankin # (Auto) 0.6 Eos # (Auto) 0.2 Baso # (Auto) 0.0 Abs Immat Gran (auto) 0.04 H Blood Type A Positive Antibody Screen Negative - Assessment Assessment: Repeat C/S - Plan Plan: routine care
[2017-02-25] MEDS: SIMETHICONE 80 MG CHEWABLE TABLET PO SCH ×4 (09:27→22:04)
[2017-02-25] MEDS: NOZIN NASAL SWAB NAS SCH ×2 (09:28→15:38)
[2017-02-26] MEDS: SIMETHICONE 80 MG CHEWABLE TABLET PO SCH ×2 (02:30→08:43)
[2017-02-26] MEDS: NOZIN NASAL SWAB NAS SCH ×2 (02:32→07:41)
[2017-02-26] MEDS: HYDROCODONE/APAP 5mg/325mg TABLET PO PRN ×2 (04:20→08:50)
--- NOTE | 2017-02-26 08:08 | OB/GYN Progress Note ---
OB-PP Progress Note - General POD:: POD2 Maternal Group B Strep: Positive Maternal blood type: A+ Maternal Rubella Status: Immune - Subjective Date: 02/26/17 Lochia: Moderate Pain: controlled Voiding: voiding Nausea or Vomiting Present: No - Objective Vital Signs: Last Vital Signs Temp 97.7 F 02/26/17 02:00 Pulse 87 02/26/17 02:00 Resp 16 02/26/17 02:00 BP 112/67 02/26/17 02:00 Pulse Ox 98 02/26/17 02:00 Urine Output: good General: alert and oriented Abdomen: fundus firm Incision: intact Extremities: non-tender - Assessment Assessment: Repeat C/S - Plan Plan: routine care, discharge home
[2017-02-26] MEDS: DOCUSATE CALCIUM 240 MG CAPSULE PO SCH (08:43)
[2017-02-26] MEDS: IBUPROFEN 800 MG TABLET PO PRN (08:43)
[2017-02-26 08:56] VITALS: BP 109/69; PULSE 77; RESP 18; TEMP 97.8; O2SAT 97
== END 2017-02-26 10:33 | disposition home or self-care (01) | DRG 766 ==
LOC: MC 10:14
PROVIDERS: ADMIT Obstetrics & Gynecology; ATTEND Obstetrics & Gynecology